=== PATIENT | female | born 1985 | race Caucasian/White ===

== ENCOUNTER 2020-03-15 10:47 | Inpatient (IN) | payer MEDICAID ==
[~2020-03-15] VITALS: Ht 152.4 cm; Wt 93.8 kg
--- NOTE | ~2020-03-15 | PROC ---
[address] [address] PROCEDURE REPORT Name: JEROMY BAH Room: [address] ADM IN .R.#: [id number] Admission: 03/15/20 Attend Phys: Fuentes Dan Discharge: Date of : 85 Report #: [id number] THIS REPORT FOR: //name// cc: Physician not on staff Physician not on staff ~ THIS REPORT FOR: //name// For GI report, please see the Provation report in Perceptive 7 content. By: [id number] Records Staff [facility] /KIA
--- NOTE | ~2020-03-15 | PROC ---
[address] [address] PROCEDURE REPORT Name: JEROMY BAH Room: [address] IN M.R.#: [id number] Admission: 03/15/20 Attend Phys: Fuentes Dan Discharge: 03/18/20 Date of : 85 Report #: [id number] THIS REPORT FOR: //name// cc: Physician not on staff Physician not on staff ~ For GI report, please see the Provation report in Perceptive 7 content. By: [id number] Records Staff [facility] /KIA
[2020-03-15 10:56] VITALS: BP 173/108
[2020-03-15 11:06] LABS: ABSOLUTE BASOPHILS 0.1 thou/uL (0.0-0.2); ABSOLUTE EOSINOPHILS 0.1 thou/uL (0.0-0.7); ABSOLUTE LYMPHOCYTES 1.4 thou/uL (0.8-5.3); ABSOLUTE MONOCYTES 0.5 thou/uL (0.0-1.2); ABSOLUTE NEUTROPHILS 4.3 thou/uL (1.6-8.1); BASOPHILS 1.3 %; EOSINOPHILS 1.7 %; HEMATOCRIT 23.6 % (37.0-47.0); HEMOGLOBIN 7.1 gm/dL (12.0-15.0); LYMPHOCYTES 21.6 %; MCH 20.3 pg (26.0-34.0); MCV 67.7 fL (80.0-100.0); NUCLEATED RBCS 0 /100WBC; PLATELET COUNT* 483 thou/uL (150-400); POLYS 67.4 %; RBC 3.49 mil/uL (4.20-5.00); RDW-CV 24.1 % (10.5-14.5); WBC 6.5 thou/uL (4.0-11.0)
[2020-03-15 11:16] LABS: CALCIUM 8.7 mg/dL (8.5-10.1); CREATININE 0.7 mg/dL (0.6-1.3); POTASSIUM 3.9 mmol/L (3.5-5.1)
[2020-03-15 11:21] LABS: ALBUMIN 3.4 g/dL (3.4-5.0); TOTAL BILIRUBIN 0.7 mg/dL (<0.1-1.0); TOTAL PROTEIN 7.4 g/dL (6.4-8.2)
[2020-03-15 11:48] LABS: ANISOCYTOSIS 3+; HYPOCHROMASIA 3+; MICROCYTES 2+; PLATELET ESTIMATE ADEQUATE; POLYCHROMASIA 1+
[2020-03-15 12:07] LABS: % SATURATION 2 % (20-39); IRON 11 ug/dL (50-175)
[2020-03-15 12:08] LABS: APTT 23.1 Seconds (25.0-31.3); PROTIME 10.3 Seconds (9.20-11.50)
--- NOTE | 2020-03-15 14:44 | EKG ---
[place] [address] ELECTROCARDIOGRAM REPORT Name: JEROMY BAH Room: [place] [address] ADM IN [facility]#: [id number] Admission: 03/15/20 Attend Phys: Alexander Blount Discharge: Date of : 85 Date of Service: 03/15/20 1154 Report #: [id number] THIS REPORT FOR: //name// [facility] ED Test Date: 2020-03-15 Test Time: 11:54:05 Pat Name: JEROMY BAH Department: Room: [facility] Gender: F Operations Processor: TDS : 1985 Requested By: Jonny Cervantes Order Number: [id number] MD: Sreekanth Llamas Measurements Intervals [place] Rate: 95 P: 27 ID: 160 QRS: 51 QRSD: 98 T: 46 QT: 367 QTc: 462 Interpretive Statements Sinus rhythm Baseline wander in lead(s) II,aVF No previous ECG available for comparison Electronically Signed On 03-15-2020 14:44:11 CDT by Sreekanth Llamas [email or web address] <ELECTRONICALLY SIGNED> By: Sreekanth Llamas MD, FAC 03/15/20 1444 1154 1154 Sreekanth Llamas MD, [facility] /EPI
[2020-03-15 15:27] VITALS: BP 105/68
[2020-03-15 16:00] VITALS: BP 126/92; BP 129/93
[2020-03-15 16:07] LABS: HEMATOCRIT 20.6 % (37.0-47.0)
[2020-03-15 16:11] LABS: HEMOGLOBIN 6.3 gm/dL (12.0-15.0)
[2020-03-15 20:10] VITALS: BP 128/88
[2020-03-15 20:41] VITALS: BP 115/77; BP 123/78; BP 125/80; BP 128/87; BP 136/84
[2020-03-16 00:48] VITALS: BP 109/70; BP 113/75; BP 115/78; BP 121/68; BP 128/87
[2020-03-16 06:05] LABS: HEMATOCRIT 24.3 % (37.0-47.0); HEMOGLOBIN 7.7 gm/dL (12.0-15.0)
[2020-03-16 07:50] VITALS: BP 120/68
[2020-03-16 08:53] LABS: CALCIUM 7.7 mg/dL (8.5-10.1); CREATININE 0.6 mg/dL (0.6-1.3); POTASSIUM 4.2 mmol/L (3.5-5.1)
[2020-03-16 08:56] LABS: MAGNESIUM 1.8 mg/dL (1.8-2.4); PHOSPHORUS* 3.4 mg/dL (2.5-4.9)
[2020-03-16 13:00] LABS: HEMATOCRIT 26.6 % (37.0-47.0); HEMOGLOBIN 8.3 gm/dL (12.0-15.0)
[2020-03-16 16:31] VITALS: BP 126/81
[2020-03-16 16:32] LABS: HEMATOCRIT 27.3 % (37.0-47.0); HEMOGLOBIN 8.3 gm/dL (12.0-15.0)
[2020-03-16 19:54] LABS: HEMATOCRIT 24.9 % (37.0-47.0); HEMOGLOBIN 7.9 gm/dL (12.0-15.0)
[2020-03-16 20:00] VITALS: BP 130/83
[2020-03-16 23:45] VITALS: BP 132/80
[2020-03-17 00:34] LABS: HEMATOCRIT 24.1 % (37.0-47.0); HEMOGLOBIN 7.5 gm/dL (12.0-15.0)
[2020-03-17 04:00] VITALS: BP 106/71
[2020-03-17 06:12] VITALS: BP 106/71
[2020-03-17 08:18] VITALS: BP 112/73
[2020-03-17 11:30] VITALS: BP 124/85
[2020-03-17 16:00] VITALS: BP 117/83
[2020-03-17 20:30] VITALS: BP 134/85
[2020-03-18 00:46] VITALS: BP 118/73
[2020-03-18 04:16] VITALS: BP 119/63; BP 119/78
[2020-03-18 04:53] LABS: ABSOLUTE BASOPHILS 0.1 thou/uL (0.0-0.2); ABSOLUTE EOSINOPHILS 0.2 thou/uL (0.0-0.7); ABSOLUTE MONOCYTES 0.5 thou/uL (0.0-1.2); ABSOLUTE NEUTROPHILS 2.7 thou/uL (1.6-8.1); BASOPHILS 1.2 %; EOSINOPHILS 3.3 %; HEMATOCRIT 24.3 % (37.0-47.0); HEMOGLOBIN 7.7 gm/dL (12.0-15.0); MCH 22.6 pg (26.0-34.0); MCHC 31.8 g/dL (28.0-37.0); MONOCYTES 9.3 %; MPV 7.8 fl. (7.2-11.1); NUCLEATED RBCS 0 /100WBC; POLYS 49.2 %; RBC 3.42 mil/uL (4.20-5.00); RDW-CV 26.8 % (10.5-14.5); WBC 5.5 thou/uL (4.0-11.0)
[2020-03-18 05:03] LABS: PLATELET COUNT* 318 thou/uL (150-400)
[2020-03-18 08:00] VITALS: BP 132/87
[2020-03-18 13:08] VITALS: BP 132/87
[2020-03-18 13:21] VITALS: BP 132/87
== END 2020-03-18 13:40 | disposition home or self-care (01) | DRG 377 ==
LOC: M.ERS 10:47 → M.TBA-ER 11:49 → M.2W 11:49
PROVIDERS: Family Medicine; Internal Medicine; ADMIT Internal Medicine; ATTEND Internal Medicine
PROC: 30233N1 Transfusion of Nonautologous Red Blood Cells into Peripheral Vein, Percutaneous Approach (ICD-10-PCS; 2020-03-15)
PROC: 0DJ08ZZ Inspection of Upper Intestinal Tract, Via Natural or Artificial Opening Endoscopic (ICD-10-PCS; principal; 2020-03-16)
PROC: 0DJD8ZZ Inspection of Lower Intestinal Tract, Via Natural or Artificial Opening Endoscopic (ICD-10-PCS; 2020-03-17)
DX: K92.2 Gastrointestinal hemorrhage, unspecified (principal); K55.059 Acute (reversible) ischemia of intestine, part and extent unspecified; D62 Acute posthemorrhagic anemia; Z68.41 Body mass index [BMI] 40.0-44.9, adult; E66.9 Obesity, unspecified; K64.9 Unspecified hemorrhoids; F17.210 Nicotine dependence, cigarettes, uncomplicated; Z20.828 Contact with and (suspected) exposure to other viral communicable diseases; Z83.79 Family history of other diseases of the digestive system; Z88.1 Allergy status to other antibiotic agents; Z88.5 Allergy status to narcotic agent; Z88.0 Allergy status to penicillin; Z88.8 Allergy status to other drugs, medicaments and biological substances; Z98.84 Bariatric surgery status; Z83.6 Family history of other diseases of the respiratory system